=== PATIENT | male | born 1950 | race Caucasian/White ===

== ENCOUNTER 2018-12-01 17:50 | Inpatient (IN) | payer BC, MEDICARE ==
[~2018-12-01] VITALS: Ht 180.3 cm; Wt 108.0 kg
[2018-12-01 17:59] VITALS: BP 178/90
[2018-12-01] MEDS ORDERED: TIZANIDINE HCL4 M1 PO (18:12)
[2018-12-01] MEDS ORDERED: NAPROSYN500 M1 PO (18:12)
[2018-12-01] MEDS ORDERED: CARVEDILOL25 MG PO (18:12)
[2018-12-01 18:22] LABS: HEMATOCRIT 48.4 % (42.0-52.0); HEMOGLOBIN 16.5 gm/dL (14.0-18.0); MCH 30.4 pg (26.0-34.0); MCHC 34.1 g/dL (28.0-37.0); MCV 89.1 fL (80.0-100.0); MPV 8.4 fl. (7.2-11.1); NUCLEATED RBCS 0 /100WBC; PLATELET COUNT* 274 thou/uL (150-400); RBC 5.43 mil/uL (4.50-6.00); RDW-CV 13.4 % (10.5-14.5); WBC 15.2 thou/uL (4.0-11.0)
[2018-12-01 18:30] LABS: CALCIUM 9.6 mg/dL (8.5-10.1); POTASSIUM 4.9 mmol/L (3.5-5.1)
[2018-12-01 18:33] LABS: APTT 28.2 Seconds (25.0-31.3); INR 1.1; PROTIME 10.9 Seconds (9.20-11.50)
[2018-12-01 18:40] LABS: TOTAL BILIRUBIN 0.5 mg/dL (<0.1-1.0); TOTAL PROTEIN 7.3 g/dL (6.4-8.2)
[2018-12-01 18:48] LABS: ABSOLUTE EOSINOPHILS 0.3 thou/uL (0.0-0.7); ABSOLUTE LYMPHOCYTES 1.2 thou/uL (0.8-5.3); ABSOLUTE MONOCYTES 0.9 thou/uL (0.0-1.2); ABSOLUTE NEUTROPHILS 12.8 thou/uL (1.6-8.1); PLATELET ESTIMATE ADEQUATE
[2018-12-01 22:04] VITALS: BP 111/72
[2018-12-02] VITALS: BP 109/50
--- NOTE | 2018-12-02 01:06 | NUR ---
PT ALERT ORIENTED. PT FALL RISK BUT REFUSED TO SIGN FALL RISK AGREEMENT AND PARTICIPATE IN FALL RISK PLAN. PT SAID HE FELL WITHIN 3 MONTHS BUT THE RAMP TO HIS SHED WAS WET AND SLIPPERY. FALL RISK BAND PLACED ON PT BUT HE TOOK IT OFF. PT INSTRUCTED TO CALL FOR HELP IF HE FELT HE NEEDED IT AND WE WOULD BE HAPPY TO ASSIST TO BR OR WHAT EVER HE NEEDED. TELEMETRY SHOWS SR. NPO AT MT. WILL CONTINUE TO MONITOR.
[2018-12-02 03:55] VITALS: BP 92/43
[2018-12-02 07:40] VITALS: BP 115/52
[2018-12-02 08:20] VITALS: BP 115/52
[2018-12-02] MEDS ORDERED: ASA81BEC PO (14:05)
[2018-12-02 14:17] VITALS: BP 108/63
--- NOTE | 2018-12-02 14:31 | NUR ---
PT TO DC TO HOME. PT EDUCATED TO CALL FOR STRESS TEST WITHIN 1-2 WEEKS. PT VERBALIZED UNDERSTANDING TO DC INSTRUCTIONS. IV REMOVED INTACT AT THIS TIME. PT TO WALK OUT WITH HOSPITAL STAFF AND SPOUSE. NO CONCERNS AT THIS TIME.
[2018-12-02 14:32] VITALS: BP 115/52
--- NOTE | 2018-12-04 16:17 | EKG ---
[place] [address] ELECTROCARDIOGRAM REPORT Name: LAMINE LYONS Room: [address] [place] .R.#: [id number] Admission: 12/01/18 Attend Phys: Abhilash Campos MD Discharge: 12/02/18 Date of : 52 Report #: [id number] THIS REPORT FOR: //name// [facility] ED Test Date: 2018-12-01 Test Time: 17:54:58 Pat Name: LAMINE LYONS Department: Room: [facility] Gender: M Attendance Clerk: : 1950 Requested By: Charles Lynn Order Number: [id number] MD: Niranjan Peter Measurements Intervals [place] Rate: 69 P: 75 VA: 142 QRS: -9 QRSD: 119 T: 62 QT: 411 QTc: 441 Interpretive Statements Sinus rhythm Nonspecific intraventricular conduction delay No previous ECG available for comparison Electronically Signed On 12-04-2018 16:16:54 CDT by Niranjan Peter [email or web address] <ELECTRONICALLY SIGNED> By: Niranjan Peter MD, [facility] 12/04/18 1616 [id number] Niranjan Peter MD, FACC /EPI
== END 2018-12-02 14:34 | disposition home or self-care (01) | DRG 311 ==
LOC: M.ERS 17:50 → M.TBA-ER 21:20 → M.2W 22:16
PROVIDERS: Emergency Medicine Emergency Medical Services; ADMIT Internal Medicine
DX: I20.9 Angina pectoris, unspecified (principal); R65.10 Systemic inflammatory response syndrome (SIRS) of non-infectious origin without acute organ dysfunction; M62.838 Other muscle spasm; I10 Essential (primary) hypertension; Z90.89 Acquired absence of other organs; Z87.891 Personal history of nicotine dependence; Z79.899 Other long term (current) drug therapy; Z79.82 Long term (current) use of aspirin; Z23 Encounter for immunization

== ENCOUNTER → 2019-01-01 | Outpatient (CLI) | payer BC, MEDICARE ==
[~2019-01-01] MED LIST: ASA81BEC PO; CARVEDILOL25 MG PO; NAPROSYN500 M1 PO; TIZANIDINE HCL4 M1 PO
--- NOTE | 2019-01-01 18:08 | CARDNUC ---
[place] [address] CARDIAC NUCLEAR IMAGING REPORT Name: LAMINE LYONS Room: [facility]#: [id number] Admission: 01/01/19 Attend Phys: Wilman Seo Discharge: Date of : 52 Date of Service: 01/01/19 1807 Report #: [id number] THIS REPORT FOR: //name// APPROVED REPORT Study performed: 01/01/2019 09:09:55 Indication: Chest Pressure, Dyspnea. Patient Location: Out-Patient Stress Tech: Morena Hogan Stress Nurse: Kerri Azevedo RN Ht: 5 ft 11 in Wt: 226 lbs BSA: 2.22 m2 BMI: 31.51 Medical History Medical History: Angina, Former Smoker, HTN, Obesity , SOB. Medications: Carvedilol, ASA 81 Mg. Allergies: No known drug allergies Cardiac Risk Factors: Age, FHX of CAD, HTN, SOB, Tobacco History (Former), Past Smoker. Previous Cardiac Procedures: None Pretest Chest Pain Characteristics: None Exercise History: Sedentary Physical Disabilities: Arthritis. Meds Held (24 hrs): Carvedilol. Resting Data Rest SPECT myocardial perfusion imaging was performed in supine position 30 minutes following the intravenous injection of 11.1 mCi of Tc-99m Sestamibi. Time of rest injection: 07:55 The images were gated to evaluate regional wall motion and calculate left ventricular ejection fraction. Administration Route: IV Administration Site: Right AC Pharmacologic Stress Pharmacologic stress test was performed by injecting Regadenoson 0.4 mg IV push over 10-15 seconds immediately followed by the intravenous injection of 35.1 mCi of Tc-99m Sestamibi. Time of stress injection: 09:20 Administration Route: IV Administration Site: [place] [address] CARDIAC NUCLEAR IMAGING REPORT Name: LAMINE LYONS Room: [facility]#: [id number] Admission: 01/01/19 Attend Phys: Wilman Seo Discharge: Date of : 52 Date of Service: 01/01/19 1807 Report #: [id number] Heart Rate at time of stress injection: 106 bpm. Gated Stress SPECT was performed 45 minutes after stress injection. The images were gated to evaluate regional wall motion and calculate left ventricular ejection fraction. Prone imaging was performed. Stress Test Details Stress Test: Pharmacologic stress was paired with low level exercise. Reason for pharmacologic stress test: arthritis. HR Max Heart Rate (APMHR): 153 bpm Resting HR: 63 bpm Target HR (85% APMHR): 130 bpm Max HR Achieved: 106 bpm % of APMHR: 69 Recovery HR: 77 bpm HR response to stress: Normal HR response to stress BP Resting BP: 152/87 mmHg Max BP: 201/86 mmHg Recovery BP: 143/89 mmHg BP response to stress: Abnormal hypertensive response to stress. ECG Resting ECG: Sinus Rhythm, normal EKG Stress ECG: Sinus Tachycardia otherwise normal ST Change: None Arrhythmia: None other than a 1.3 second pause following the injection of Lexiscan Recovery ECG: Sinus Rhythm, normal EKG Recovery ST Change: None Recovery Arrhythmia: None Clinical Reason for Termination: Completed protocol Stress Symptoms: Dyspnea, Flushed. Exercise duration: 4 min 00 sec Exercise capacity: 2.30 METs Nurse Comments A 68 year old male presented for a walking Lexiscan r/t chest pressure with dyspnea. Test well tolerated. Recovery unremarkable with PO caffeine, effective. Patient was escorted by staff to Nuclear Medicine for images. Patient stated [place] [address] CARDIAC NUCLEAR IMAGING REPORT Name: LAMINE LYONS Room: [facility]#: [id number] Admission: 01/01/19 Attend Phys: Wilman Seo Discharge: Date of : 52 Date of Service: 01/01/19 1807 Report #: [id number] time. Stress ECG Conclusion Normal hemodynamic response to pharmacologic stress. Non-diagnostic EKG stress due to failure to attain target HR. Study Quality Study: Good Artifact: Mild Diaphragmatic artifact Lung Uptake: Normal Study Data At rest, the left ventricular ejection fraction was 73%.. Post stress, the left ventricular ejection was 72%.. SSS: 15 SRS: 14 SDS: 1 TID = 1.00. Perfusion The resting study demonstrated a moderate in size and mild to moderate in intensity inferior defect. The post stress images demonstrate a small mild in size and mild intensity inferior defect. Prone images were obtained and demonstrated a small in size and very mild in intensity inferior defect area there therefore no reversible defects seen and there is no evidence of myocardial ischemia. The fixed very mild inferior defect could be due to diaphragmatic attenuation artifact. An old small very mild inferior myocardial infarction cannot be excluded. Images were reviewed using [place]. Wall Motion Normal left ventricular wall motion. Nuclear Conclusion ECG Findings: non-diagnostic Clinical Findings: negative for ischemia Nuclear Findings: negative for ischemia Exercise Capacity: not assessed Left Ventricular Function: normal Risk Study: low Normal study. No scintigraphic evidence for myocardial ischemia. A small old inferior infarct cannot be excluded. <Conclusion> [place] [address] CARDIAC NUCLEAR IMAGING REPORT Name: LAMINE LYONS Room: [facility]#: [id number] Admission: 01/01/19 Attend Phys: Wilman Seo Discharge: Date of : 52 Date of Service: 01/01/19 1807 Report #: [id number] Normal hemodynamic response to pharmacologic stress. Non-diagnostic EKG stress due to failure to attain target HR. <ELECTRONICALLY SIGNED> By: Korey Pierce MD, FACC 01/01/191806 06 06 Korey Pierce MD, FAC /INF
== END ==
LOC: M.NUC 12-22 10:00 → M.CRD 12-22 10:00 → M.NUC 12-29 08:00
DX: R07.89 Other chest pain (principal); R06.00 Dyspnea, unspecified; I25.10 Atherosclerotic heart disease of native coronary artery without angina pectoris; I10 Essential (primary) hypertension; Z87.891 Personal history of nicotine dependence